=== PATIENT | male | born 1950 | race Caucasian/White ===

== ENCOUNTER 2019-03-06 16:02 | Inpatient (IN) | payer BC ==
--- NOTE | 2019-03-06 16:31 | ED ---
HPI Chest Pain - HPI Summary HPI Summary: This pt is a 68 y/o male presenting to [facility] via EMS from [facility] for chest pain and NSTEMI. Pt had his first episode of chest pain last week on Wednesday that woke him up from sleep. Two days ago (03/04/19) pt had another episode of chest pain that lasted for 30 minutes and resolved on its own. Pt has not had any chest pain since then. He describes his chest pain as nonradiating and burning. Currently denies any chest pain. Pt denies any fever, chills, erythema of eyes, sore throat, SOB, cough, abd pain, nausea, vomiting, dysuria, hematuria, myalgia, edema, rash, or dizziness. Pt arrives on Heparin gtt. FHx of [place]. PMHx: HTN. Pt is a former tobacco user. He drinks alcohol rarely. - History of Current Complaint Time Seen by Provider: 03/06/19 16:16 Hx Obtained From: Patient Onset/Duration: Started Days Ago, Still Present Timing: Intermittent, Lasting Days Initial Severity: Moderate Current Severity: None Pain Intensity: 0 Pain Scale Used: 0-10 Numeric Chest Pain Radiates: No Character: Burning Aggravating Factor(s): Nothing Alleviating Factor(s): Nothing Associated Signs and Symptoms: Positive: Chest Pain. Negative: Shortness of Breath, Fever, Chills, Nausea, Cough, Vomiting - Allergy/Home Medications Allergies/Adverse Reactions: Allergies Allergy/AdvReac Type Severity Reaction Status Date / Time No Known Allergies Allergy Verified 03/06/19 16:54 Home Medications: Home Medications Losartan/Hydrochlorothiazide [Losartan Potassium/Hydroc 50-12.5 mg] 1 tab PO DAILY 03/06/19 [History Confirmed 03/06/19] PMH/Surg Hx/FS Hx/Imm Hx Endocrine/Hematology History: Denies: Hx Diabetes Cardiovascular History: Reports: Hx Hypertension - Surgical History Surgery Procedure, Year, and Place: CARDIAC ABLATION FOR WPW Infectious Disease History: Reports: Hx Hepatitis - HEPATITIS C - Family History Known Family History: Positive: Cardiac Disease - [place] - Social History Alcohol Use: Rare Substance Use Type: Reports: None Smoking Status (MU): Former Smoker Review of Systems Negative: Fever, Chills Negative: Erythema Negative: Sore Throat Positive: Chest Pain Negative: Shortness Of Breath, Cough Negative: Abdominal Pain, Vomiting, Nausea Negative: dysuria, hematuria Negative: Myalgia, Edema Negative: Rash Neurological: Other - NEGATIVE: dizziness All Other Systems Reviewed And Are Negative: Yes Physical Exam - Summary Physical Exam Summary: Constitutional: Well-developed, Well-nourished, Alert. (-) Distressed Skin: Warm, Dry HENT: Normocephalic; Atraumatic Eyes: Conjunctiva normal Neck: Musculoskeletal ROM normal neck. (-) JVD, (-) Stridor, (-) Tracheal deviation Cardio: Rhythm regular, rate normal, Heart sounds normal; Intact distal pulses; The pedal pulses are 2+ and symmetric. Radial pulses are 2+ and symmetric. (-) Murmur Pulmonary/Chest wall: Effort normal. (-) Respiratory distress, (-) Wheezes, (-) Rales Abd: Soft, (-) Tenderness, (-) Distension, (-) Guarding, (-) Rebound Musculoskeletal: (-) Edema Lymph: (-) Cervical adenopathy Neuro: Alert, Oriented x3 Psych: Mood and affect Normal Triage Information Reviewed: Yes Vital Signs Reviewed: Yes Diagnostics - Laboratory Result Diagrams: 03/06/19 16:50 03/06/19 16:50 Lab Statement: Any lab studies that have been ordered have been reviewed, and results considered in the medical decision making process. - Radiology Chest XR Radiology Interpretation Completed By: Radiologist Summary of Radiographic Findings: IMPRESSION: No radiographic evidence for acute cardiopulmonary abnormality on this portable chest x-ray. Dr. Monk has reviewed this report. - EKG 16:36 Cardiac Rate: Bradycardia - at 59 bpm EKG Rhythm: Sinus Bradycardia Summary of EKG Findings: Anterolateral ST depression. No STEMI. Re-Evaluation - Re-Evaluation First Eval Re-Evaluation Time: 17:31 Comment: Dr. Tomas, project geophysicist, at bedside with pt. Dr. Tomas has asked not to do an EKG at this time. Pt is currently chest pain free. Chest Pain Course/Dx - Course Assessment/Plan: Pt is a 68 y/o male presenting to [facility] via EMS from [facility] for chest pain and NSTEMI. Pt had his first episode of chest pain last week on Wednesday that woke him up from sleep. Two days ago pt had another episode of chest pain that lasted for 30 minutes and resolved on its own. He has not had any chest pain since then. He describes his chest pain as nonradiating and burning. Currently denies any chest pain. Lab work from [facility] showed WBC of 12, troponin of 2.9. EKG was normal in [place]. Pt was given aspirin and placed on heparin gtt and sent here. Lab results at [facility] show WBC of 13, BUN of 3, creatinine of 2, and troponin of 3.49. Chest XR shows no radiographic evidence for acute cardiopulmonary abnormality on this portable chest x-ray. Discussed the case with Dr. Tomas, project geophysicist, and he will come see the pt in the ED. Also discussed with Dr. Quiles, hospitalist, who accepted the pt for admission. - Diagnoses Provider Diagnoses: NSTEMI (non-ST elevated myocardial infarction) - Provider Notifications Discussed Care Of Patient With: Jt Tomas Time Discussed With Above Provider: 16:30 Instructed by Provider To: Other - Discussed the case with Dr. Tomas, project geophysicist, who will see the pt in the ED. [17:30] Discussed with Dr. Quiles, hospitalist, who accepted the pt for admission. - Critical Care Time Critical Care Time: 30-74 min - 60 minutes Discharge - Sign-Out/Discharge Documenting (check all that apply): Patient Departure - Admit to [facility] All imaging exams completed and their final reports reviewed: Yes Patient Received Moderate/Deep Sedation with Procedure: No - Discharge Plan Condition: Stable Disposition: ADMITTED TO [facility] - Attestation Statements Document Initiated by Scribe: Yes Documenting Scribe: Christa Ortez Provider For Whom Scribe is Documenting (Include Credential): Nav Monk MD Scribe Attestation: IChrista, scribed for Nav Monk MD on 03/06/19 at 1915. Status of Scribe Document: Ready
[2019-03-06] MEDS ORDERED: Heparin VIAL(*) 5000 UNITS/ML VIAL (FIVE THOUSAND) IV PRN (16:37)
[2019-03-06] MEDS ORDERED: Heparin DRIP 25,000 UNITS(*) 25,000 UNITS/500 ML BAG IV SCH (16:45)
[2019-03-06 16:59] LABS: ABS Basophils 0.1 10^3/ul (0-0.2); ABS Eosinophils 0.5 10^3/ul (0-0.6); ABS Lymphocytes 2.3 10^3/ul (1.0-4.8); ABS Monocytes 1.4 10^3/ul (0-0.8); Eosinophil % 3.7 %; Hematocrit 42 % (42-52); Lymphocyte % 17.4 %; Mean Corpuscular HGB Conc 36 g/dL (31-36); Mean Corpuscular Hemoglobin 33 pg (27-31); Mean Corpuscular Volume 92 fL (80-94); Mean Platelet Volume 8.9 fL (7.4-10.4); Nucleated Red Blood Cells % 0.1; Platelet Count 182 10^3/uL (150-450); Red Blood Count 4.59 10^6 /uL (4.18-5.48); Red Cell Distribution Width 14 % (10-15); White Blood Count 13.3 10^3/uL (3.5-10.8)
[2019-03-06 17:27] LABS: Troponin I 3.49 ng/mL (<0.04)
[2019-03-06 17:28] LABS: ALT 20 U/L (7-52); AST 37 U/L (13-39); Albumin 4.4 g/dL (3.2-5.2); Albumin/Globulin Ratio 1.5 (1-3); Alkaline Phosphatase 59 U/L (34-104); Anion Gap 8 mmol/L (2-11); BUN/Creatinine Ratio 18.5 (8-20); Blood Urea Nitrogen 37 mg/dL (6-24); CO2 Carbon Dioxide 27 mmol/L (22-32); Calcium 9.8 mg/dL (8.6-10.3); Chloride 103 mmol/L (101-111); EGFR African American 40.7 (>60); EGFR Non-African American 33.6 (>60); Glucose 96 mg/dL (70-100); Potassium 4.3 mmol/L (3.5-5.0); Sodium 138 mmol/L (135-145); Total Protein 7.4 g/dL (6.4-8.9)
[2019-03-06] MEDS ORDERED: diPHENhydraMINE PO* 25 MG PO PRN (17:45)
[2019-03-06] MEDS ORDERED: NS 0.9% 1000 ML** 1,000 ML IV SCH (17:45)
[2019-03-06] MEDS ORDERED: Diazepam TAB(*) 5 MG PO PRN (17:45)
[2019-03-06] MEDS ORDERED: Ondansetron INJ* 2 MG/ML VIAL IV PRN (17:46)
[2019-03-06] MEDS ORDERED: Nitroglycerin TAB 0.4 MG* 0.4 MG TAB SL PRN (17:46)
[2019-03-06] MEDS ORDERED: Acetaminophen TAB* 325 MG PO PRN (17:46)
[2019-03-06] MEDS ORDERED: Acetylcysteine ORAL SOL* 200 MG/ML VIAL PO ONE (17:57)
[2019-03-06] MEDS ORDERED: NS 0.9% 500 ML* 500 ML IV ONE (17:58)
[2019-03-06] MEDS ORDERED: Lactated Ringers 1000 ML Bag* 1,000 ML IV SCH (18:00)
[2019-03-06 18:18] LABS: Magnesium 2.5 mg/dL (1.9-2.7); Phosphorus 3.6 mg/dL (2.5-5.0)
--- NOTE | 2019-03-06 20:05 | CONS ---
CC: Dr. Johana Watson, [facility] * CARDIOLOGY CONSULTATION: DATE OF CONSULT: 03/06/19 INDICATION FOR CONSULTATION: NSTEMI, chest pain, hypertension. HISTORY OF PRESENT ILLNESS: The patient is a 68-year-old gentleman with a history of hypertension, history of renal insufficiency, history of treated hepatitis C, who came to [facility] with a diagnosis of chest pain. The patient states that 2 Sundays ago he was at home when he had severe chest pain. He described it as a heaviness in his chest radiating to his right arm. He said he raised his arm up into the air and it helped the discomfort a little bit. It lasted for a couple of hours and resolved on its own. He did not have it the rest of the week and then Wednesday night, he was [place] on the [place] and he had the exact same discomfort; he had to stop at a rest area. He was unable to drive because he was feeling lightheaded. Again, he felt a severe heaviness in his chest that radiated to his right arm. He denied any nausea. He denied any shortness of breath. He said this discomfort lasted again for an hour or 2 and then resolved on its own. Today,, he called his primary care physician who instructed him to go to the emergency room. At [facility], his EKG showed normal sinus rhythm with ST segment depressions and he had a troponin level of 2.5. He was transferred to [facility] for further evaluation. On arrival to the [facility] , he denied any cardiac symptoms. The patient denies any lightheadedness or dizziness. He denies any orthopnea or PND. He denies any palpitations. PAST MEDICAL HISTORY: Significant for: 1. Renal insufficiency. 2. Hypertension. 3. Hepatitis C, which was treated. 4. History of WPW, he had an ablation back in the . OUTPATIENT MEDICATIONS: Losartan/hydrochlorothiazide 50/12.5 mg a day. ALLERGIES: No known drug allergies. SOCIAL HISTORY: He denies tobacco use, rare alcohol use. No illicit drug use. FAMILY HISTORY: He states father had a history of stents. He also has had a history of carotid endarterectomy in the past. REVIEW OF SYSTEMS: Negative for fever and chills. Negative for changes in bowel or bladder habits. Negative for change in weight. Other 12-point review is unremarkable. PHYSICAL EXAM: Height is 5 feet 8 inches, weight is 160 pounds. Temperature 96.5, heart rate is 60, blood pressure 143/76, respiratory rate is 16. Sclerae anicteric. Oropharynx is pink without erythema. Carotids are 2+ without bruits. JVD is normal. Thyroid is normal. Cardiac Exam: S1, S2 without any murmurs, rubs, or gallops. Lungs are clear to auscultation. There is no dullness to percussion. Abdomen is soft, nontender, nondistended with normoactive bowel sounds. Extremities show no edema. He has 2+ pulses throughout. The patient is awake, alert, and oriented. He moves all 4 extremities equally. DIAGNOSTIC STUDIES/LAB DATA: EKG demonstrates a heart rate of 59, normal sinus rhythm. He does have [address] segment depression in leads V3 through V5. Laboratory studies, CBC within normal limits. Chemistries are normal, BUN 37, creatinine 2.0, which is slightly worse than his baseline of 1.6 to 1.7. AST and ALT are normal. Troponin is 3.49. IMPRESSION: A 68-year-old gentleman who has been experiencing chest discomfort for the past week or so. He has had 2 distinct episodes of chest discomfort that are quite concerning for an acute coronary syndrome, non-ST elevation myocardial infarction. Again, his EKG shows no evidence of ST segment elevation. He is currently pain - free. For now, my recommendation is to start MERRITT inhibitor, statin therapy, beta- clarice therapy. The patient will get an echocardiogram in the morning. The patient will be evaluated by Nephrology. The patient has been following with Nephrology for a number of years. The patient will be evaluated prior to cardiac catheterization. The patient will be hydrated overnight. The patient will be started on an aspirin a day. I will see the patient in followup in the morning and make further recommendations. [id number]/[facility] #: [id number] [facility]
[2019-03-06] MEDS: Metoprolol Tartrate TAB* 25 MG PO SCH (20:14)
[2019-03-06 20:38] LABS: Troponin I 2.93 ng/mL (<0.04)
[2019-03-06] MEDS ORDERED: Atorvastatin* 80 MG TAB PO ONE (21:00)
[2019-03-06] MEDS ORDERED: Acetylcysteine CAP (RENAL)* 600 MG PO ONE ×2 (21:00→21:09)
[2019-03-06] MEDS ORDERED: Acetylcysteine ORAL SOL* 200 MG/ML VIAL PO SCH (21:00)
[2019-03-06] MEDS: NS 0.9% 1000 ML** 1,000 ML IV SCH (21:00)
[2019-03-06] MEDS: Atorvastatin* 80 MG TAB PO SCH (21:39)
--- NOTE | 2019-03-06 21:45 | HP ---
CC: Dr. Watson in [place]; Dr. Jt Tomas; Dr. Roddy Zavala * ADMISSION HISTORY AND PHYSICAL: DATE OF ADMISSION: 03/06/19 PRIMARY CARE PROVIDER: Dr. Watson in [place]. MY ATTENDING WHILE IN THE HOSPITAL: Dr. Christa Quiles.* (DICTATED BY AFIA NAPIER) CONSULTING COORDINATOR OF GENETIC SERVICES: Dr. Jt Tomas. OUTPATIENT BIOFUELS TECHNOLOGY MANAGER: Dr. Roddy Zavala. CHIEF COMPLAINT: NSTEMI. HISTORY OF PRESENT ILLNESS: Mr. Bridges is a 68-year-old male with a past medical history significant for high blood pressure, hyperlipidemia, gout, chronic kidney disease, and WPW, who 8 days ago on 02/26/19, had an episode of chest pain that was severe, was burning, substernal and came on suddenly, did not have associated symptoms, does not worse with exertion, lasted approximately 1 hour. It woke him up from sleep. He was able to go back to sleep and by the time he woke back up, it was gone. The patient was in his normal state of health for the next 6 days when he had a similar episode while driving on 03/04/19, and at that time felt lightheaded. The patient pulled over, had a cup of coffee, and his chest pain resolved. The patient had been feeling well and is in normal state of health. The patient had been having some increased shortness of breath on exertion, but could still almost go up to almost 3 or 4 flights of stairs without being short of breath and without provoking chest pain. The patient had no fever, chills, nausea or vomiting. No recent illnesses. There are no recent changes in his medications except for adjustment to his blood pressure medication which happened a while ago. He cannot quantify the time. The patient has chronic kidney disease and is following with a scale expert. The patient is unclear why he has chronic kidney disease. The patient was recently treated for hepatitis C and that has now fully resolved. The patient never had an episode like this before. In the emergency department, the patient had an EKG, which showed nonspecific T wave, ST segment changes and a troponin, which had increased to 3.49. The patient's creatinine in the ED was 2.0. Due to concern for NSTEMI, we were asked to admit the patient to the hospital. PAST MEDICAL HISTORY: Chronic kidney disease, hypertension, hyperlipidemia, hepatitis C, history of WPW, status post ablation. PAST SURGICAL HISTORY: Ablation. MEDICATIONS: Per records from outside hospital: 1. Amlodipine 5 mg p.o. daily. 2. Hyzaar 50/12.5 one tab p.o. daily. 3. Colchicine 0.6 mg twice daily. 4. Allopurinol 300 mg p.o. daily. ALLERGIES: The patient had constipation in response to STATINS. FAMILY HISTORY: The patient's father is live, has heart stents, diabetes, and hypertension. The patient's mother has breast cancer. The patient has a sister with high blood pressure. SOCIAL HISTORY: The patient quit smoking in the 90s after smoking for most of his adult life to that point. The patient drinks occasional alcohol. The patient denies any illicit drug use. The patient works at [employer], is , and has children. The patient's surrogate decision maker his mother, Ava Bridges. REVIEW OF SYSTEMS: A 14-point review of systems was reviewed and is negative except as above in the HPI. PHYSICAL EXAMINATION GENERAL: The patient is a 68-year-old male, who appears stated age and sitting comfortably in bed, in no acute distress. VITAL SIGNS: Temperature 96.5, pulse rate 66, respiratory rate 16, oxygen saturation 98% on room air, blood pressure 146/76. HEENT: Head: Normocephalic, atraumatic. Sclerae anicteric. No conjunctival injection. Nasal mucosa moist. Oral mucosa moist. No pharyngeal erythema, discharge or exudate. NECK: Supple, nontender. No lymphadenopathy. No carotid bruits auscultated. No JVD. RESPIRATORY: Clear to auscultation bilaterally. No wheezes, rales or rhonchi. Good air exchange bilaterally. CARDIAC: Regular rate and rhythm. No clicks, murmurs, gallops or rubs. Pulses are 2+ in the bilateral dorsalis pedis, posterior tibialis, and radial areas. ABDOMEN: Soft, nontender, nondistended. Bowel sounds present and normoactive in all 4 quadrants. No hepatosplenomegaly. No abdominal bruits auscultated. No hepatojugular reflux. GENITOURINARY: No suprapubic or CVA tenderness. SKIN: Clear, intact. No rashes. NEURO: Cranial nerves II through XII are intact. No focal deficits. Alert and oriented x3. PSYCHIATRIC: Pleasant and cooperative. DIAGNOSTIC STUDIES/LAB DATA: White blood cell count 13.3, hemoglobin 15.0, platelet count 182. APTT 205, on heparin drip. Sodium 138, potassium 4.3, chloride 103, carbon dioxide 27, anion gap 8, BUN 37, creatinine 2.0, glucose 96 , lactic acid 0.7, calcium 9.8. Bilirubin 0.6, AST 37, ALT 20, alkaline phosphatase 59. Troponin 3.49, increased from 2.99 at outside hospital. Total protein 7.4, albumin 4.4, globulin 3.0. Studies: Chest x-ray read as no radiographic evidence for acute cardiopulmonary disease. Electrocardiogram shows normal sinus rhythm. ST depression laterally. No Other ST-segment elevation or depression. No hypertrophy or enlargement. Normal axis, rate of 59, QTc of 416. ASSESSMENT/PLAN: Impression: Mr. Bridges is a 68-year-old male with past medical history significant for chronic kidney disease, hyperlipidemia, and hypertension, who presents to the emergency department after 2 episodes of chest pain concerning for acute coronary syndrome and found to have elevated troponin at outside hospital, was transferred for evaluation by Cardiology and will be treated medically pending a cath. 1. Uzi-ZD-prwffujqd myocardial infarction: The patient has clear non-ST- elevation myocardial infarction with ST segment changes, elevated troponin. The patient has not had any chest pain since Wednesday, but his troponin is still trending up. The patient was seen in consultation by Dr. Jt Tomas, who recommended aspirin, statin, and heparin drip, Nephrology consultation and consideration for catheterization in the morning with an echocardiogram, all of which have been ordered. The patient's troponin will be trended. The patient will be started on Lipitor 80 mg daily and aspirin 81 mg daily. Plavix and Brilinta will be held off on at this time. The patient is currently normotensive. The patient will be started on metoprolol to decrease cardiac demand and keep his blood pressure in control. 2. Chronic kidney disease: The patient has chronic kidney disease likely from his hypertension. We will hold the patient's losartan in the setting of probable cath and we will also hold the patient's hydrochlorothiazide. The patient's blood pressure will be controlled with amlodipine and metoprolol. The patient will be seen in consultation by Dr. Roddy Zavala of Nephrology with whom this case has already been discussed with. He recommended N- acetylcysteine for prevention of contrast-induced nephropathy related to arterial contrast as well as fluids, which have been ordered overnight. The patient creatinine is decreasing since earlier today and will continue to be monitored. 3. Hypertension: The patient is currently normotensive. Continue treatment as above, goal below 140. 4. Hyperlipidemia: Atorvastatin as above. 5. FEN: Fluids as above. Heart-healthy diet and no caffeine. 6. DVT prophylaxis: The patient will have heparin drip. 7. Disposition: The patient will be admitted inpatient to the hospital. TIME SPENT: Approximately 60 minutes was spent on the admission of this patient , 30 of which was spent [id number] with the patient obtaining history and physical and discussing treatment plan. This plan was discussed with my attending, Dr. Christa Quiles, and she is in agreement. AFIA NAPIER [id number]/[facility] #: [id number] VALARIE
[2019-03-07 00:11] LABS: Troponin I 2.97 ng/mL (<0.04)
[2019-03-07] MEDS: NS 0.9% 1000 ML** 1,000 ML IV SCH (04:00)
[2019-03-07 07:11] LABS: ABS Eosinophils 0.5 10^3/ul (0-0.6); ABS Lymphocytes 1.3 10^3/ul (1.0-4.8); ABS Neutrophils 5.9 10^3/ul (1.5-7.7); Eosinophil % 5.9 %; Hematocrit 39 % (42-52); Hemoglobin 13.8 g/dL (14.0-18.0); Lymphocyte % 14.4 %; Mean Corpuscular HGB Conc 36 g/dL (31-36); Mean Corpuscular Hemoglobin 33 pg (27-31); Mean Corpuscular Volume 92 fL (80-94); Platelet Count 161 10^3/uL (150-450); Red Blood Count 4.19 10^6 /uL (4.18-5.48); Red Cell Distribution Width 13 % (10-15); White Blood Count 8.7 10^3/uL (3.5-10.8)
[2019-03-07 07:47] LABS: BUN/Creatinine Ratio 21.1 (8-20); Calcium 8.9 mg/dL (8.6-10.3); EGFR African American 47.4 (>60); EGFR Non-African American 39.2 (>60); HDL Cholesterol 27.7 mg/dL; Potassium 4.5 mmol/L (3.5-5.0)
[2019-03-07] MEDS: Metoprolol Tartrate TAB* 25 MG PO SCH ×2 (08:00→20:40)
--- NOTE | 2019-03-07 08:21 | ECHO ---
*[facility]* [place] [address] Fax #: [phone] Transthoracic Echocardiogram Patient: Cyrus, Height: 68 in / Genaro Ackerman 172.7 cm : 1950 Weight: 159.7 lb / Study Date: 03/07/2019 72.6 kg Age: 68 BP: 115 / 68 Gender: M BMI/BSA: 24.3 kg/m^2 HR: 57 bpm / 1.86 m^2 *Hammer Smith: * Jessie Stoddard [facility] *Referring Physician: * Jt Tomas MD *Reading Physician: * Jt Tomas MD Indications: Chest Pain, unspecified. History: Izknf-Qhahpvatx-Aimhh syndrome. Functional status: Renal failure. Risk factors: Hypertension. Hyperlipidemia. Labs, prior tests, procedures, and surgery: Electrophysiology study with ablation. Conclusions Summary: 1. Left ventricle: There is mild concentric hypertrophy. Systolic function is at the lower limits of normal. The estimated ejection fraction is 50-55%. Hypokinesis of the basalinferolateral myocardium. Hypokinesis of the basalinferior myocardium. 2. Right ventricle: Systolic function is normal. 3. Mitral valve: There is trace regurgitation. 4. Aortic valve: There is trace regurgitation. 5. Tricuspid valve: There is trace to mild regurgitation. 6. Pericardium, extracardiac: There is no pericardial effusion. 7. Pulmonary arteries: Systolic pressure is within the normal range. 8. Study data: No prior study is available for comparison. Study data: Transthoracic echocardiogram. Procedure: Transthoracic echocardiography was performed. Image quality was fair. Complete 2D, spectral Doppler, and color flow Doppler. Location: Bedside. Patient status: Inpatient. Patient room number: 448-1. No prior study is available for comparison. Rhythm: Bradycardia. Findings Left ventricle: The cavity size is below normal. There is mild concentric hypertrophy. There is a false tendon within the ventricle. Systolic function is at the lower limits of normal. The estimated ejection fraction is 50-55%. Regional wall motion abnormalities: Hypokinesis of the basalinferolateral myocardium. Hypokinesis of the basalinferior myocardium. Doppler parameters are consistent with abnormal left ventricular relaxation (grade 1 diastolic dysfunction). Right ventricle: The cavity size is mildly dilated. The moderator band is in a normal position. Systolic function is normal. Systolic pressure is within the normal range. Left atrium: The atrium is normal in size. Right atrium: The atrium is mildly dilated. Atrial septum: There is increased thickness of the septum, consistent with lipomatous hypertrophy. Mitral valve: The annulus is mildly calcified. The leaflets are mildly thickened. There is no evidence of stenosis. There is trace regurgitation. Aortic valve: The valve is trileaflet. The leaflets are mildly thickened. There is no evidence of stenosis. There is trace regurgitation. Tricuspid valve: The leaflets are normal thickness. There is no evidence of stenosis. There is trace to mild regurgitation. Pulmonic valve: The leaflets are normal thickness. There is no evidence of stenosis. There is trace regurgitation. Aorta: Ascending aorta: The ascending aorta is appears normal. Aortic arch: The aortic arch is poorly visualized. The aortic root is not dilated. Pericardium: A prominent pericardial fat pad is present. There is no pericardial effusion. Pulmonary arteries: The main pulmonary artery is normal-sized. Systolic pressure is within the normal range. Systemic veins: Inferior vena cava: The vessel is dilated. The respirophasic diameter changes are in the normal range (>= 50%). Measurements Left ventricle Value Ref Aortic valve Value Ref CLEMENTINA, LAX (L) 3.0 cm 4.2 - 5.8 Leila diam, ED 1.7 cm ----- ESD, LAX (L) 2.1 cm 2.5 - 4.0 Peak v, S 1.19 m/sec ----- FS, LAX 31 % 25 - 43 VTI, S 25.7 cm ----- PW, ED, LAX (H) 1.1 cm 0.6 - 1.0 Mean grad, S 3.0 mm Hg ----- FS 31 % 25 - 43 Peak grad, S 6.0 mm Hg ----- PW, ED (H) 1.1 cm 0.6 - 1.0 LVOT/AV, VTI ratio 0.7 ----- E', lat leila, TDI (L) 9.7 cm/sec >=10.0 E/e', lat leila, 5 Mitral valve Value Ref TDI Peak E 0.53 m/sec ----- E', med leila, TDI 7.3 cm/sec >=7.0 Peak A 0.71 m/sec --- -- E/e', med leila, 7 Decel time 232 ms ----- TDI Peak E/A ratio 0.7 ----- E', avg, TDI 8.5 cm/sec E/e', avg, TDI 6 <=14 Pulmonic valve Value Ref Peak v, S 1.04 m/sec ----- LVOT Value Ref Peak grad, S 4.0 mm Hg ----- Peak bishnu, S 0.9 m/sec VTI, S 18.0 cm Tricuspid valve Value Ref Mean grad, S 1 mm Hg TR peak v 2 m/sec <=2.8 Peak RV-RA grad, S 16 mm Hg ----- Ventricular septum Value Ref IVS, ED (H) 1.3 cm 0.6 - 1.0 Aortic root Value Ref Root diam 3.2 cm <4.0 Right ventricle Value Ref CLEMENTINA, LAX 2.9 cm Ascending aorta Value Ref CLEMENTINA minor ax, A4C (H) 4.6 cm 1.9 - 3.5 AAo AP diam, S 3.5 cm ----- mid Pressure, S 24 mm Hg Decending aorta Value Ref Brien peak bishnu 0.59 m/sec ----- Left atrium Value Ref AP dim, ES 3.00 cm 3.00 - Pulmonary artery Value Ref 4.00 Pressure, S 20.0 mm Hg ----- ML dim, A4C 3.2 cm SI dim, A4C 4.6 cm Inferior vena cava Value Ref Vol/bsa, ES, 1-p 15 ml/m^2 12 - 37 Diam 2.4 cm ----- A4C Vol/bsa, ES, A/L 29 ml/m^2 16 - 34 Right atrium Value Ref SI dim, ES (H) 5.4 cm 3.4 - 5.3 ML dim, ES, A4C 4.0 cm 2.6 - 4.4 SI dim, ES, A4C (H) 5.4 cm 3.4 - 5.3 Estimated RAP 8 mm Hg Legend: (L) and (H) magdaleno values outside specified reference range. Prepared and electronically signed by Jt Tomas MD 03/07/2019 08:20
[2019-03-07] MEDS ORDERED: Ticagrelor* 90 MG TAB PO ONE (08:28)
[2019-03-07] MEDS ORDERED: amLODIPine TAB* 5 MG PO SCH (09:00)
[2019-03-07] MEDS ORDERED: Acetylcysteine CAP (RENAL)* 600 MG PO ONE (09:00)
[2019-03-07] MEDS ORDERED: Hydrochlorothiazide TAB* 25 MG PO SCH (09:00)
[2019-03-07] MEDS ORDERED: Aspirin EC TAB* 81 MG TAB.EC PO SCH (09:00)
[2019-03-07] MEDS ORDERED: Heparin(*) 1000 UNIT/ML 10 ML VIAL CATH LAB IV ONE (10:21)
[2019-03-07] MEDS ORDERED: Midazolam* 1 MG/ML 5 ML VIAL (5 MG) ONE (10:21)
[2019-03-07] MEDS ORDERED: fentaNYL* 50 MCG/ML 2 ML VIAL (100 MCG VIAL) ONE (10:21)
[2019-03-07] MEDS ORDERED: VERAPAMIL 2.5 MG/ML 2 ML VIAL ** 5 mg/2 ml ONE (10:21)
[2019-03-07] MEDS ORDERED: nitroGLYCERIN DRIP* 25,000 MCG/250 ML BTL ONE (10:22)
[2019-03-07] MEDS ORDERED: Iodixanol 320 (CONTRAST) 100 ML SDV ONE (10:22)
[2019-03-07] MEDS ORDERED: Heparin 2 UNITS/ML IVPREMIX* 3,000 UNIT/1,500 ML BAG IV ONE (10:22)
[2019-03-07] MEDS ORDERED: Lidocaine 1% INJ* 10 MG/ML 30 ML SDV ONE (10:22)
[2019-03-07] MEDS ORDERED: NS 0.9% 1000 ML** 1,000 ML IV SCH (11:30)
--- NOTE | 2019-03-07 17:03 | PN ---
Subjective Date of Service: 03/07/19 Interval History: Patient was seen today after his left heart cath. I discussed with cardiology Dr. Tomas the cath report. 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 Patient is scheduled for transfer to [facility] in am to Dr. Panda (CTS at [facility]) as recommended by Dr. Tomas cardiology. Dr. Tomas kindly spoke to Dr. Panda and in return Dr. Panda has accepted the patient. Patient was made aware that [facility] is not the closet facility to [facility], or [facility] in [facility] and both have CTS service. However; the patient accepted to proceed with Dr. Tomas recommendations and he accepted to be transferred to [facility] instead. At this time patient is stable, denies any chest pain or shortness of breath Past Medical History: Unchanged from Admission Objective Active Medications: Acetaminophen (Tylenol Tab*) 650 mg PO Q6H PRN PRN Reason: FEVER/PAIN Amlodipine Besylate (Norvasc Tab*) 5 mg PO DAILY [facility] Last Admin: 03/07/19 08:00 Dose: 5 mg Aspirin (Aspirin Ec Tab*) 81 mg PO DAILY [facility] Last Admin: 03/07/19 08:00 Dose: 81 mg Atorvastatin Calcium (Lipitor*) 80 mg PO 2100 [facility] Last Admin: 03/06/19 21:39 Dose: 80 mg Sodium Chloride (Ns 0.9% 1000 Ml) 1,000 mls @ 100 mls/hr IV PER RATE [facility] Stop: 03/07/19 18:00 Last Admin: 03/07/19 13:54 Dose: 100 mls/hr Metoprolol Tartrate (Lopressor Tab*) 25 mg PO Q12HR [facility] Last Admin: 03/07/19 08:00 Dose: 25 mg Nitroglycerin (Nitroglycerin Tab 0.4 Mg*) 0.4 mg SL Q5M PRN PRN Reason: ANGINA Ondansetron HCl (Zofran Inj*) 4 mg IV Q6H PRN PRN Reason: NAUSEA Vital Signs - 8 hr 03/07/19 03/07/19 03/07/19 09:27 10:24 11:37 Temperature 97.9 F Pulse Rate 60 Respiratory 18 15 15 Rate Blood Pressure 144/86 (mmHg) O2 Sat by Pulse 94 Oximetry 03/07/19 03/07/19 03/07/19 11:42 11:46 12:00 Temperature Pulse Rate 55 58 57 Respiratory 15 20 12 Rate Blood Pressure 120/74 133/79 (mmHg) O2 Sat by Pulse 94 95 95 Oximetry 03/07/19 03/07/19 03/07/19 12:01 12:17 12:31 Temperature Pulse Rate 56 62 58 Respiratory 26 26 21 Rate Blood Pressure 130/74 135/72 130/76 (mmHg) O2 Sat by Pulse 97 98 96 Oximetry 03/07/19 03/07/19 03/07/19 12:46 12:54 13:15 Temperature 97 F Pulse Rate 59 59 61 Respiratory 23 18 Rate Blood Pressure 135/69 133/68 (mmHg) O2 Sat by Pulse 96 99 Oximetry 03/07/19 03/07/19 03/07/19 13:33 13:48 14:17 Temperature 97.9 F 97.7 F Pulse Rate 65 64 Respiratory 18 18 20 Rate Blood Pressure 144/67 135/64 (mmHg) O2 Sat by Pulse 98 97 Oximetry 03/07/19 03/07/19 15:31 16:35 Temperature 97.8 F 97.7 F Pulse Rate 60 63 Respiratory 20 16 Rate Blood Pressure 138/82 137/74 (mmHg) O2 Sat by Pulse 99 98 Oximetry Oxygen Devices in Use Now: None Appearance: awake, stable no distress Eyes: No Scleral Icterus, PERRLA, - - EOMI Ears/Nose/Mouth/Throat: NL Teeth, Lips, Gums, Mucous Membranes Moist Neck: NL Appearance and Movements; NL JVP, Trachea Midline Respiratory: Symmetrical Chest Expansion and Respiratory Effort, Clear to Auscultation Cardiovascular: NL Sounds; No Murmurs; No JVD, No Edema Abdominal: NL Sounds; No Tenderness; No Distention Extremities: No Edema, No Clubbing, Cyanosis, - - right arm in a wrist immobilizer Skin: No Rash or Ulcers Neurological: Alert and Oriented x 3 Result Diagrams: 03/07/19 06:44 03/07/19 06:44 Assess/Plan/Problems-Billing Assessment: 68 y/o male admitted for chest pain positive NQMI s/p cardiac cath which showed 3 vessels disease (offical report pending at the time of this note) - Patient Problems (1) NSTEMI (non-ST elevated myocardial infarction) Current Visit: Yes Status: Acute Code(s): I21.4 - NON-ST ELEVATION (NSTEMI) MYOCARDIAL INFARCTION SNOMED Code(s): 51580494 Comment: - EKG did not show ST elevations - Trop peaked at 3.49 - s/p left heart cath, prelim report after discussion with Dr. Tomas showed 3 vessels disease and he will need CABG. Accepted to be transferred in am by Dr. Panda at [facility] - transport set up with [facility] for 5 am - Continue aspirin 81 mg daily, lipitor 80 mg and prn NTG, lopressor 25 mg q12 - Off heparin drip Dr. Tomas aware for CABG in am. - Patient is chest pain free (2) CAD (coronary atherosclerotic disease) Current Visit: Yes Status: Acute Code(s): I25.10 - ATHSCL HEART DISEASE OF [place] CORONARY ARTERY W/O ANG PCTRS SNOMED Code(s): 475513094 Comment: - EKG did not show ST elevations - Trop peaked at 3.49 - s/p left heart cath, prelim report after discussion with Dr. Tomas showed 3 vessels disease and he will need CABG. Accepted to be transferred in am by Dr. Panda at [facility] - transport set up with [facility] for 5 am - Continue aspirin 81 mg daily, lipitor 80 mg and prn NTG, lopressor 25 mg q12 - Off heparin drip Dr. Tomas aware for CABG in am. - Patient is chest pain free (3) Hypertension Current Visit: Yes Status: Acute Code(s): I10 - ESSENTIAL (PRIMARY) HYPERTENSION SNOMED Code(s): 81096959 Comment: - continue amlodipine 5 mg daily and lopressor 25 mg q12hrs (4) Hyperlipidemia Current Visit: Yes Status: Acute Code(s): E78.5 - HYPERLIPIDEMIA, UNSPECIFIED SNOMED Code(s): 03111969 Comment: - continue lipitor 80 mg HS (5) History of Yfwdg-Uqxgstbeu-Mqvov (WPW) syndrome Current Visit: Yes Status: Acute Code(s): Z86.79 - PERSONAL HISTORY OF OTHER DISEASES OF THE CIRCULATORY SYSTEM SNOMED Code(s): 790214866 Comment: - s/p ablations (6) CKD (chronic kidney disease) stage 3, GFR 30-59 ml/min Current Visit: Yes Status: Acute Code(s): N18.3 - CHRONIC KIDNEY DISEASE, STAGE 3 (MODERATE) SNOMED Code(s): 827466524 Comment: - continue IVF espescially now post cardiac cath - BMP in am (7) History of hepatitis C Current Visit: Yes Status: Acute Code(s): Z86.19 - PERSONAL HISTORY OF OTHER INFECTIOUS AND PARASITIC DISEASES SNOMED Code(s): 72503981709993 (8) DVT prophylaxis Current Visit: Yes Status: Acute Code(s): Z29.9 - ENCOUNTER FOR PROPHYLACTIC MEASURES, UNSPECIFIED SNOMED Code(s): 150985768 Comment: - SCD for now. Off all heparin prodcuts
--- NOTE | 2019-03-07 17:18 | CATH ---
CC: Dr. Johana Watson, [place]; Dr. Connor; Dr. Sincere Panda, [facility] CARDIAC CATHETERIZATION: DATE OF PROCEDURE: 03/07/19 PROCEDURE: Cardiac catheterization. INDICATION FOR PROCEDURE: Acute coronary syndrome, coronary artery disease. HISTORY OF PRESENT ILLNESS: The patient is a 68-year-old gentleman with a history of hypertension, h istory of renal insufficiency who was admitted to the hospital with crescendo angina and abnormal tro ponin level. His peak troponin level was 3.9. An echocardiogram done this morning demonstrated low normal LV systolic function. Ejection fraction of 50%. He does have inferior wall hypokinesis. No significant valvular abnormalities. Cardiac catheterization was recommended. DESCRIPTION OF PROCEDURE: The patient was brought to the procedure room in a fasting state. Informe d consent had been obtained prior to the procedure. All labs were reviewed. The patient was placed supine on the catheterization table. His right radial area was prepped and draped in the usual fashio n. Lidocaine 1% was used for local anesthesia. The radial artery was entered via Seldinger techniqu e and a guidewire was placed. Over the guidewire, a 6-Brazilian hydrophilic sheath was placed and an in fusion of heparin, verapamil, and nitroglycerin was given through the sheath. The patient underwent coronary angiography using a 6- Brazilian TIG catheter. A total of 30 cc of Visipaque dye was used. A total of 3.7 minutes of fluoro time was used. FINDINGS: Left main: The left main artery was very short. It quickly bifurcated into the LAD and ci rcumflex. There was no evidence of stenosis. Left anterior descending artery: The LAD was normal in size. It gave off 2 diagonal vessels. The p roximal LAD had concentric 50% stenosis. The mid LAD had a long 70% stenosis. The remainder of the vessel was without disease. The first diagonal vessel had a proximal long 70% stenosis. Left circumflex artery: The circumflex artery was normal in size. It gave off 3 obtuse marginal bra nches. The circumflex itself was without disease. The first OM was a small vessel and had an ostial 90% stenosis. The second OM was a large vessel, which had a proximal 80% stenosis. The third OM ve ssel was without disease. Right coronary artery: The RCA was occluded in its proximal portion. There was left to right collat erals filling faintly to the PDA and to a large posterolateral branch. IMPRESSION: Three-vessel coronary artery disease as described above. RECOMMENDATION: The patient will be evaluated for coronary bypass surgery. [id number]/[facility] #: [id number]
--- NOTE | 2019-03-07 20:30 | TRS ---
CC: Dr. Jt Tomas; Dr. Vaughn Watson; Dr. Roddy Zavala DISCHARGE/TRANSFER SUMMARY: DATE OF ADMISSION: 03/06/19 DATE OF TRANSFER: Scheduled for 03/08/19. PRIMARY CARE PROVIDER: Dr. Vaughn Watson. FINAL TRANSFER DIAGNOSES: 1. Dvr-RW-wsxaokveu myocardial infarction. 2. Coronary artery disease, 3-vessel disease, status post cardiac cath. 3. Hypertension. 4. Hyperlipidemia. 5. History of Geovg-Xveohophp-Tvksi syndrome. 6. History of chronic kidney disease, stage 3. 7. History of hepatitis C. HOSPITAL COURSE: The patient came in to [facility] on 03/06/19 for intermittent recurrent chest pain started about 8 days prior to presentation, retrosternal, severe, burning, resolved with rest and hot showers. Only to reoccur and finally on the day of admission, he decided to be evaluate d given his persistent symptoms. In the emergency room, his EKG shows nonspecific ST-wave changes, n o ST elevation and troponin was as high as 3.49. The patient was started on IV fluids given his activity specialist rajni kidney disease and he underwent cardiac cath today, 03/07/[address] Tomas. Official report remai ns pending; however, after discussion with Dr. Tomas, it did show 3-vessel disease, not amenable for intervention. Dr. Tomas did speak with Dr. Panda to kindly evaluate the patient and he is schedul ed to be transferred to [facility] first thing in the morning at 5 a.m. The patient was updated, made aware of the transfer. COBRA form was filled, [facility] scheduled for 5 a.m., and currently he john ins in stable condition pending transfer in a.m. TRANSFER MEDICATIONS: 1. Tylenol 650 q.6 p.r.n. 2. Amlodipine 5 daily. 3. Aspirin 81 daily. 4. Lipitor 80 daily. 5. Lopressor 25 q.12. 6. Nitro p.r.n. 7. Zofran 4 mg IV q.6 hours p.r.n. His home medication Hyzaar 50/12.5 will be held given his recent contrast dye for the cardiac cath wi th underlying chronic kidney disease, stage 3. INPATIENT DIAGNOSTIC STUDIES: Cardiac catheterization, official report pending as discussed; however , I reviewed with Dr. Tomas. He does have 3-vessel disease and the patient required transfer to [facility] under the service of Dr. Panda for coronary artery bypass evaluation in a.m. Echocardiogram, 03/06/19, reveals normal ejection fraction 50% to 55%, hypokinesis in the basal and i nferior wall, no significant valvular disease. Chest x-ray on 03/06/19 shows no acute pulmonary finding. EKG, 03/07/19, shows normal sinus rhythm, rate 58, good R-wave progression, no ST or T-wave changes t o suggest ischemia. Cardiac catheterization, left heart, 3-vessel disease, official report pending. INPATIENT CONSULTATION: Cardiology, Dr. Jt Tomas. DISCHARGE DISPOSITION: The patient is scheduled to be transferred to [facility] under the cardiothoracic se maryann for 03/08/19. CONDITION: At the time of evaluation as of 03/07/19 at 5 p.m. was stable condition. [id number]/[facility] #: [id number]
[2019-03-07] MEDS: Atorvastatin* 80 MG TAB PO SCH (20:40)
[2019-03-08 04:12] LABS: Hematocrit 39 % (42-52); Hemoglobin 14.1 g/dL (14.0-18.0); Mean Corpuscular HGB Conc 36 g/dL (31-36); Mean Corpuscular Hemoglobin 33 pg (27-31); Mean Corpuscular Volume 92 fL (80-94); Platelet Count 161 10^3/uL (150-450); Red Blood Count 4.28 10^6 /uL (4.18-5.48); Red Cell Distribution Width 14 % (10-15); White Blood Count 9.7 10^3/uL (3.5-10.8)
[2019-03-08 04:35] LABS: BUN/Creatinine Ratio 21.9 (8-20); Calcium 9.4 mg/dL (8.6-10.3); EGFR African American 49.4 (>60); EGFR Non-African American 40.8 (>60); Potassium 4.2 mmol/L (3.5-5.0)
[2019-03-08 05:29] VITALS: BP 135/80
[2019-03-08 07:12] LABS: ABS Basophils 0.1 10^3/ul (0-0.2); ABS Eosinophils 0.6 10^3/ul (0-0.6); ABS Lymphocytes 1.5 10^3/ul (1.0-4.8); ABS Monocytes 1.1 10^3/ul (0-0.8); ABS Neutrophils 6.5 10^3/ul (1.5-7.7); Eosinophil % 5.7 %; Lymphocyte % 15.4 %; Nucleated Red Blood Cells % 0.1
== END 2019-03-08 05:20 | disposition short-term general hospital (02) | DRG 190 ==
LOC: ED 16:02 → MEDTELE 18:14 → UNDODISIN 03-08 05:20
PROVIDERS: ADMIT Internal Medicine; ATTEND Internal Medicine
PROC: B211YZZ Fluoroscopy of Multiple Coronary Arteries using Other Contrast (ICD-10-PCS; principal; 2019-03-07 10:30)
DX: I21.4 Non-ST elevation (NSTEMI) myocardial infarction (principal); M10.9 Gout, unspecified; I25.118 Atherosclerotic heart disease of native coronary artery with other forms of angina pectoris; I12.9 Hypertensive chronic kidney disease with stage 1 through stage 4 chronic kidney disease, or unspecified chronic kidney disease; E78.5 Hyperlipidemia, unspecified; N18.3 Chronic kidney disease, stage 3 (moderate); Z86.19 Personal history of other infectious and parasitic diseases; Z79.82 Long term (current) use of aspirin; Z88.8 Allergy status to other drugs, medicaments and biological substances; Z82.49 Family history of ischemic heart disease and other diseases of the circulatory system; Z83.3 Family history of diabetes mellitus; Z80.3 Family history of malignant neoplasm of breast; Z87.891 Personal history of nicotine dependence; Z72.89 Other problems related to lifestyle
CPT/HCPCS: 36415; 71045; 80048; 80053; 80061; 83036; 83605; 83735; 84100; 84484; 85025; 85060; 85730; 93005; 93306; 93454; 99156; 99157; 99284; A9270-GY; J1644; J2250; J3010

== ENCOUNTER → 2019-05-23 07:01 | Day surgery (SDC) | payer BC ==
[~2019-05-23 07:01] MED LIST: Diazepam TAB(*) 5 MG ONE; Heparin 2 UNITS/ML IVPREMIX* 2,000 ML IV ONE; Heparin(*) 1000 UNIT/ML 10 ML VIAL CATH LAB IV ONE; Iodixanol 320 (CONTRAST) 100 ML SDV ONE; Lidocaine 1% INJ* 10 MG/ML 30 ML SDV ONE; Midazolam* 1 MG/ML 5 ML VIAL (5 MG) ONE; NS 0.9% 1000 ML** 1,000 ML IV SCH; diPHENhydraMINE PO* 25 MG ONE; fentaNYL* 50 MCG/ML 2 ML VIAL (100 MCG VIAL) ONE; nitroGLYCERIN DRIP* 0 MCG/0 ML BTL ONE
[2019-05-23 12:56] VITALS: BP 167/81
--- NOTE | 2019-05-23 15:14 | CATH ---
CC: Dr. Panda* CATH REPORT: DATE OF PROCEDURE: 05/23/19 PRIMARY CARE PHYSICIAN: Dr. Nathanael Watson. GLASS EDGER: Dr. Brooks. CARDIAC SURGEON: Dr. Panda. PROCEDURES: Right common femoral artery access, bilateral selective coronary cineangiography, ZALDIVAR and saphenous vein graft angiography, Angio-Seal right common femoral artery. HISTORY: A 68-year-old male with status post bypass grafting 03/09/19 for a non -ST elevation infarct and 3-vessel disease. He received a ZALDIVAR to the LAD, a saphenous vein graft to the RPDA, and a sequential saphenous vein graft to the diagonal, marginal, marginal. He was referred for coronary angiography because of relatively atypical chest pain symptoms, but stress imaging, which showed a moderate sized anterior as well as inferior reversible defects. PROCEDURE: Access right common femoral artery sheath, 6.5 Kyr[place]z. MEDICATIONS: Subcu lidocaine, IV Versed, IV fentanyl. DIAGNOSTIC CATHETERS: 6F ALIE, 6 FL4. LV gram was not performed because of renal insufficiency with creatinine clearance in the 50s. HEMODYNAMICS: Initial FA 177/75, final BP 148/81. ANGIOGRAPHY: RFA sheath entries in segment 2, there is no stenosis. ZALDIVAR. The ALIE is moderate, smooth, inserts into the second diagonal without insertion stenosis. It fills the diagonal antegrade as well as retrograde back to the LAD and then fills the LAD antegrade as well as retrograde. RCA. The cahto RCA is occluded in its midportion with bridging collaterals, distally there is a small PDA and very small PL. His RCA is codominant with a relatively small supply. Saphenous vein graft to circumflex. It is large, rises from the left side of the aorta, the side to side anastomosis to the diagonal fills very faintly likely due to high grade stenosis at the anastomosis. The continuation of the graft then inserts [id number] into the second marginal where there is a 40% stenosis, the marginal fills antegrade as well as retrograde back to its proximal occlusion. The continuation of the graft then inserts end to side into the third marginal, which has proximal 75% stenosis with competitive flow. As his nuclear scan reported anterior ischemia rather than anterolateral ischemia, and the Dx has diffuse disease including the anastamotic site, the diagonal was not intervened upon. Saphenous vein graft to RCA. It was injected, is occluded a few mm from the origin. Left main. The left main is short, has no stenosis. LAD. The LAD is calcified, has a proximal 60% to 70% stenosis, then supplies a small caliber first diagonal, which is the bypassed vessel and has lengthy proximal diffuse stenosis with a small reference diameter, with a high-grade stenosis at the [id number]-zgwv anastomosis to the diagonal, suboptimal for PCI. After the first diagonal, the LAD has a tubular 50% stenosis, more distally there is competitive flow from the ZALDIVAR graft to the second diagonal. Circumflex. The circumflex is codominant, moderate with a high first marginal, which has a very small distribution, has proximal 50% stenosis, was not bypassed. The second marginal, which was bypassed is occluded proximally, the third marginal is filled by the bypass graft. The circumflex ends with a small- to-moderate caliber circumflex codominant PDA. CONCLUSION: 1. 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 2. High-grade stenosis at the anastomosis of the vein graft to the diagonal with the diagonal vessel having diffuse severe disease and small reference diameter, making it suboptimal for PCI. 3. Successful Angio-Seal, right common femoral artery. 4. The patient will discuss with Dr. Brooks dual antiplatelet therapy as he presented with the ACS in February, after which he underwent bypass grafting. 5. No LVG due to CKD III [id number]/[facility] #: [id number] MTDMaude
== END | disposition home or self-care (01) ==
LOC: CHICATH 07:01
PROVIDERS: ATTEND Internal Medicine Cardiovascular Disease
DX: I25.110 Atherosclerotic heart disease of native coronary artery with unstable angina pectoris (principal); I25.810 Atherosclerosis of coronary artery bypass graft(s) without angina pectoris; I15.0 Renovascular hypertension; Z87.891 Personal history of nicotine dependence; Z95.1 Presence of aortocoronary bypass graft; I25.2 Old myocardial infarction; R94.31 Abnormal electrocardiogram [ECG] [EKG]; N18.3 Chronic kidney disease, stage 3 (moderate)
CPT/HCPCS: 93455; 99156; 99157; A9270-GY; C1760; C1887; J1644; J2250; J3010